=== PATIENT | female | born 1990 | race Caucasian/White ===

== ENCOUNTER 2018-10-02 06:00 | Inpatient (IN) | payer OTHER ==
[~2018-10-02] VITALS: Ht 157.5 cm; Wt 85.2 kg
[2018-10-02] MEDS ORDERED: LACTATED RINGER'S 1,000 ML IV PRN (08:01)
[2018-10-02 08:12] VITALS: Ht 157.5 cm; Wt 85.2 kg
[2018-10-02] MEDS ORDERED: URSO300C3 PO (08:19)
[2018-10-02] MEDS ORDERED: METHYLERGONOVINE 0.2 MG INJ IM PRN ×2 (08:30→21:30)
[2018-10-02] MEDS ORDERED: IBUPROFEN 600 MG TAB PO PRN (08:30)
[2018-10-02] MEDS ORDERED: BUTORPHANOL 2 MG INJ IV PRN (08:30)
[2018-10-02] MEDS ORDERED: MINERAL OIL LIGHT 10 ML VIAL TOP PRN (08:30)
[2018-10-02] MEDS ORDERED: OXYTOCIN 30 UNITS/LR 500 ML IV PRN ×2 (08:30→21:30)
[2018-10-02] MEDS ORDERED: CARBOPROST 250 MCG INJ IM PRN ×2 (08:30→21:30)
[2018-10-02] MEDS ORDERED: OXYTOCIN 30 UNITS/LR 500 ML IV SCH ×4 (08:30→21:11)
[2018-10-02] MEDS ORDERED: LIDOCAINE 1% (MPF) 30 ML INJ INJ PRN (08:30)
[2018-10-02] MEDS ORDERED: MISOPROSTOL 200 MCG TAB PR PRN ×2 (08:30→21:30)
[2018-10-02] MEDS: LACTATED RINGER'S 1,000 ML IV SCH ×2 (08:59→16:24)
[2018-10-02] MEDS ORDERED: AMPICILLIN 2 GM/NS (PMX) 100 ML IVPB ONE (13:00)
[2018-10-02] MEDS ORDERED: AMPICILLIN 1 GM/NS (PMX) 50 ML IVPB SCH ×2 (13:00→17:00)
--- NOTE | 2018-10-02 21:24 | LDN ---
Date/Time of Note Date/Time of Note DATE: 10/02/18 TIME: 21:19 Delivery Summary Vacuum assisted vaginal delivery for heart rate decelerations over 2 pushes and weighing 2995 grams or 6# 10 oz, 18.5" long,a dn with Apgars of 8/9. Weeks of Gestation 37w Assisted Vaginal Delivery: Vacuum Placenta Delivered: Spontaneously Meconium: none Episiotomy: No Perineal laceration: 2 Laceration repair: 2nd degree perineal laceration with bilateral vaginal sulcal tears all repaired with 2-0 chromic with excellent tissue approximation and hemostasis. Anesthesia type: Local Estimated blood loss: 300 Sponge & Needle done & correct: Yes All needle counts correct: Yes Any foreign bodies felt in the: No (vagina) Delivery Information Sex Infant Sex: male Apgars 1 Minute: 8 5 Minute: 9 Suctioning Nose & mouth suctioned at liliam: Yes Delee suction performed: No Umbilical Cord Umbilical cord with: 3 Vessels Cord presentations: no nuchal cord Cord Blood was obtained: Yes Mother & Baby Disposition Disposition Mom & Baby to Maternity; Good: Yes Baby to NICU: No NIEVES BOWMAN MD Oct 02, 2018 21:24
[2018-10-02] MEDS ORDERED: HYDROCODONE/APAP (5/325) TAB PO PRN (21:30)
--- NOTE | 2018-10-02 21:33 | HP ---
Date/Time of Note Date/Time of Note DATE: 10/02/18 TIME: 21:26 OB - History Hx of Present Free Text/Dictation 28 y.o. G1 with an IUP at 37 weeks admitted for induction for cholestasis of . Estimated Due Date: Oct 23, 2018 : 1 Para: 0 Care: Good Care Ultrasounds: Normal mid trimester US Obstetrical Complications: Other (Cholestasis) Medical Complications: None Other Concerns: PMHx: none. PSHx: wisdom teeth. All: latex. Past Family/Social History * Past Medical, Surgical, Family and Obstetric Histories reviewed from chart. Blood Type: AB+ RPR/VDRL: Negative GBS Status: Unknown HBsAG: Negative OB Admission Exam Vital Signs Vital Signs T=98.4 BP 135/83 Physical Exam HEENT: WNL Heart: Rhythm Normal Lungs: Clear Abdomen: WNL Extremities: Normal Reflexes: Normal Cervical Dilatation: 1cm Effacement: 75% Station: -2 Membranes: Intact Amniotic Fluid: Clear Heart Rate: 130's Accelerations: Accelerations Present Decelerations: No Decelerations Varibility: Moderate Contractions on Admission: < 5 Minutes Apart Intensity: Moderate Last 72 hours Lab Results CBC & BMP 10/02/18 07:45 OB Assessment/Plan Reason for admission: other (Cholestasis of .) Plan: Other (Augmentation) Induction Method: per Pitocin Protocol NIEVES BOWMAN MD Oct 02, 2018 21:33
[2018-10-02] MEDS: WITCH HAZEL/GLYCERIN PAD PR PRN (21:41)
[2018-10-02] MEDS: BENZOCAINE 20% 56 ML SPRAY TOP PRN (21:41)
[2018-10-02 23:30] VITALS: BP 113/62; PULSE 68; RESP 18
[2018-10-02] MEDS: LACTATED RINGER'S 1,000 ML IV* SCH (23:30)
[2018-10-02] MEDS: IBUPROFEN 600 MG TAB PO SCH (23:36)
[2018-10-03 00:30] VITALS: BP 112/57; PULSE 65; RESP 18
[2018-10-03 04:00] VITALS: BP_SYST 111; BP_SYST 122; BP_DIAS 55; BP_DIAS 71; PULSE 69; PULSE 80; RESP 16; RESP 19
[2018-10-03] MEDS: LACTATED RINGER'S 1,000 ML IV* SCH ×3 (05:11→21:11)
[2018-10-03] MEDS: IBUPROFEN 600 MG TAB PO SCH ×5 (06:10→23:44)
[2018-10-03 08:00] VITALS: BP 111/59; PULSE 70; RESP 18
[2018-10-03 12:16] VITALS: BP 102/57; PULSE 83; RESP 16
[2018-10-03 16:00] VITALS: BP 123/56; PULSE 88; RESP 18
[2018-10-03 19:30] VITALS: BP 108/57; PULSE 90; RESP 19
[2018-10-03] MEDS: LANOLIN HPA 1 PKT TOP PRN (23:44)
[2018-10-04 03:50] VITALS: BP 103/56; PULSE 73; RESP 18
[2018-10-04] MEDS: IBUPROFEN 600 MG TAB PO SCH ×2 (05:45→12:30)
[2018-10-04 08:00] VITALS: BP 99/57; PULSE 73; RESP 16
[2018-10-04 16:00] VITALS: BP 116/63; PULSE 84; RESP 16
--- NOTE | 2018-10-04 17:27 | PD.PPDC ---
SO[facility] Discharge Instruction Condition [id number] Patient Condition: Ylhiy1a Good Diet [id number] Diet: Natqe1s Resume Regular Diet Activity/Restrictions [id number] Activity: [id number] Normal Activity May Shower [id number] Restrictions: [id number] No Sexual Activity Nothing in the Vagina No [place] No Tampons, douche Follow-up Follow-up with Physician: 6, Week/Weeks Return to clinic for [id number] LEAD SYSTEMS DEVELOPER Instructions: Rbopb4y Fever greater than 101 Chills Worsening abdominal pain Excessive Vaginal Bleeding [id number] OB Instructions: Iijcx4g Breast Tenderness Depression NIEVES BOWMAN MD Oct 04, 2018 17:27
--- NOTE | 2018-10-04 17:30 | DS ---
Date/Time of Note Date/Time of Note DATE: 10/04/18 TIME: 17:28 Obstetrical Discharge Record Final Diagnosis Final Diagnosis: Term delivered Other Final Diagnosis Cholestasis of . Vaginal Delivery Obstetrical Delivery: Vacuum Extraction Complications Other (Cholestasis) Augmentation: Yes Induction: No Condition on Discharge Physical Assessment Last Vitals: T=98.6 BP 99/57 Voiding: Yes Bowel Movement: Yes Breast: Filling Fundus: Firm Episiotomy: Laceration intact. Calf Tenderness: No Patient Condition: Good NIEVES BOWMAN MD Oct 04, 2018 17:30
[2018-10-04] MEDS: BENZOCAINE 20% 56 ML SPRAY TOP PRN (17:52)
[2018-10-04] MEDS: WITCH HAZEL/GLYCERIN PAD PR PRN (17:52)
[2018-10-04] MEDS: LANOLIN HPA 1 PKT TOP PRN (17:52)
--- NOTE | 2018-10-09 11:27 | DELSUM ---
Delivery Summary A-C Datetime Report Generated by CPN: 10/09/2018 11:20 DELIVERY PERSONNEL Billet Straightener: Dries, Juan MATERNAL INFORMATION Delivery Anesthesia: None Medications in Delivery: LR WITH 30 UNITS PITOCIN Delivery QBL (ml): 300 Placenta Cultured: Yes Maternal Complications: Abnormal Cord Length Other Maternal Complications: SHORT CORD LABOR SUMMARY EDC: 10/23/2018 00:00 No. Babies in Womb: 0 Attempted: No Labor Anesthesia: None LABOR INFORMATION Reason for Induction: Other Reason for Induction- Other: CHOLESTASIS Onset of Labor: 10/02/2018 13:00 Complete Dilatation: 10/02/2018 20:10 Oxytocin: Induction Group B Beta Strep: Not Done Antibiotics # of Doses: 2 Antibiotics Time of Last Dose: 10/02/2018 17:36 Steroids Given: None Reason Steroids Not Administered: Not Applicable MEMBRANES Membranes Rupture Method: Spontaneous Rupture of Membranes: 10/02/2018 18:20 Length of Rupture (hr): 2.03 Amniotic Fluid Color: Clear Amniotic Fluid Amount: Small Amniotic Fluid Odor: None STAGES OF LABOR Stage 1 hr: 7 Stage 1 min: 10 Stage 2 hr: 0 Stage 2 min: 12 Stage 3 hr: 0 Stage 3 min: 4 Total Time in Labor hr: 7 Total Time in Labor min: 26 VAGINAL DELIVERY Episiotomy: None Laceration Extension: Second Degree Laceration Type: Perineal Laceration Repair: Yes Initial Vag Sponge Count: 10 Final Vag Sponge Count: 20 Initial Vag Sharps Count: 1 Final Vag Sharps Count: 3 Sponge Count Correct: Yes; Vaginal Sweep Performed Sharps Count Correct: Yes BABY A INFORMATION Infant Delivery Date/Time: 10/02/2018 20:22 Method of Delivery: Vaginal Born in Route : No : N/A Forceps: N/A Vacuum Extraction: Successful Shoulder Dystocia : N/A ASSISTED DELIVERY BABY A Indication for Assisted Delivery: FAILURE TO DESCEND Station Vacuum/Forcep Apply: +2 Position Vacuum/Forcep Apply: Left Occipital Anterior Vacuum Number of Pulls: 1 Vacuum Number of PopOffs: 0 Vacuum Automatic Brine Mixer Operator: KIWI Total Time Vacuum Applied: 60 SECONDS Vacuum/Forceps Comment: VACUUM PRESSURE CONTROLLED MANUALLY BY MD SHOULDER DYSTOCIA BABY A Infant Delivery Date/Time: 10/02/2018 20:22 PRESENTATION/POSITION BABY A Presentation: Cephalic Cephalic Presentation: Vertex Vertex Position: Left Occipital Anterior Breech Presentation: N/A PLACENTA INFORMATION BABY A Placenta Delivery Time : 10/02/2018 20:26 Placenta Method of Delivery: Spontaneous Placenta Status: Delivered SCORES BABY A Heart Rate 1 min: >100 bpm Resp Effort 1 min: Good Cry Reflex Irritability 1 min: Cough/Sneeze/Pulls Away Muscle Tone 1 min: Active Motion Color 1 min: Blue/Pale Resuscitation Effort 1 min: Tactile Stimulation SCORE 1 MIN: 8 Heart Rate 5 min: >100 bpm Resp Effort 5 min: Good Cry Reflex Irritability 5 min: Cough/Sneeze/Pulls Away Muscle Tone 5 min: Active Motion Color 5 min: Body [place], Extremit Blue Resuscitation Effort 5 min: Tactile Stimulation SCORE 5 MIN: 9 INFANT INFORMATION BABY A Gestational Age at Delivery: 37.0 Gestational Status: Early Term- 37- 38.6 Weeks Infant Outcome : Liveborn Infant Condition : Stable Infant Sex: Male IDENTIFICATION/MEDS BABY A ID Band Number: [id number] ID Band Location: Right Leg; Left Arm Sensor Applied: Yes Sensor Number: [id number] Sensor Location : Cord Clamp Vitamin K Given : Not Given Erythromycin Given: Not Given WEIGHT/LENGTH BABY A Infant Birthweight (gm): 2995 Infant Weight (lb): 6 Infant Weight (oz): 10 Length (in): 18.50 Length (cm): 46.99 CORD INFORMATION BABY A No. Cord Vessels: 3 Nuchal Cord : N/A Cord Blood Taken: Yes Infant Suction: Mouth; Nose ASSESSMENT BABY A Infant Respirations: Appears Normal Reeling Machine Setup Operator/ALS Called : No
== END 2018-10-04 18:54 | disposition home or self-care (01) | DRG 805 ==
LOC: L-D 07:05 → PP1 23:19
PROVIDERS: ADMIT Obstetrics & Gynecology; ATTEND Obstetrics & Gynecology
PROC: 0KQM0ZZ Repair Perineum Muscle, Open Approach (ICD-10-PCS; 2018-10-02)
PROC: 10D07Z6 Extraction of Products of Conception, Vacuum, Via Natural or Artificial Opening (ICD-10-PCS; principal; 2018-10-02 06:00)
DX: O26.62 Liver and biliary tract disorders in childbirth (principal); K83.1 Obstruction of bile duct; Z37.0 Single live birth; O76 Abnormality in fetal heart rate and rhythm complicating labor and delivery; O70.1 Second degree perineal laceration during delivery; Z3A.37 37 weeks gestation of pregnancy
CPT/HCPCS: 76815; 85025; 85610; 85730; 86592; 86850; 86900; 86901; 99464; J0290; J2590; J7120